=== PATIENT | male | born 1975 | race Hispanic/Latino ===

== ENCOUNTER 2020-07-07 03:19 | Emergency (ER) | payer OTHER ==
[~2020-07-07] VITALS: Ht 180.3 cm; Wt 86.2 kg
[2020-07-07 03:39] VITALS: BP 136/93
[2020-07-07 03:44] VITALS: BP 136/93
[2020-07-07] MEDS ORDERED: TORADOL ONE (03:48)
[2020-07-07] MEDS ORDERED: KENALOG-40 IM STA (03:48)
[2020-07-07] MEDS ORDERED: KENALOG-40 ONE (03:48)
[2020-07-07] MEDS ORDERED: TORADOL IM STA (03:48)
--- NOTE | 2020-07-07 03:56 | ER.PDOC ---
General Chief Complaint: Extremities Stated Complaint: GOUT Time seen by MD: 03:50 Source: patient Exam Limitations: no limitations History of Present Illness Initial Comments Gout flare up of right great toe since yesterday. Patient ate a lot of red meat last week. He has a history of gout and takes allopurinol. Onset: yesterday Where: home Severity: moderate Exacerbated By: walking movement Relieved By: nothing Past Medical History Medical History: other (Gout) Surgical History: no surgical history Family History Significant Family History: no pertinent family hx Social History Smoking: non-smoker Alcohol Use: none Drug Use: none Review of Systems Constitutional: no symptoms reported EENTM: no symptoms reported Respiratory: no symptoms reported Cardiovascular: no symptoms reported Gastrointestinal: no symptoms reported Musculoskeletal: see HPI All Other Systems: Reviewed and Negative Physical Exam General Appearance: Alert, No Apparent Distress Lower Extremity: tenderness (metatarso-phalangeal joint of right great toe without swelling or redness) Joint Exam: joints nml, nml ROM, nml gait/weight bearing Vascular: no vascular compromise, pulses full/equal Neuro/Psych: sensation nml, motor nml, oriented x3, CN's nml as tested, mood/affect nml Skin: color nml, warm/dry, no rash Back/Neck: nml inspection EENT: eyes inspection nml, ENT inspection nml, pharynx nml Respiratory: no resp distress, breath sounds nml CVS: reg rate & rhythm, heart sounds nml Abdomen: non-tender, no organomegaly, no bruit/mass Results/Orders Results/Orders Orders - ALFREDA ALVA MD Ketorolac Tromethamine (Toradol) (07/07/20 03:48) Triamcinolone Acetonide (Kenalog-40) (07/07/20 03:48) Ketorolac Tromethamine (Toradol) (07/07/20 03:48) Triamcinolone Acetonide (Kenalog-40) (07/07/20 03:48) Vital Signs Date Time Temp Pulse Resp B/P (MAP) Pulse Ox O2 Delivery O2 Flow Rate FiO2 07/07/20 03:44 98.0 66 18 136/93 (107) 97 Room Air 07/07/20 03:39 98.0 66 18 07/07/20 03:39 98.0 66 18 97 07/07/20 03:39 98.0 66 18 136/93 (107) 97 Room Air Progress Progress Patient given a shot of Toradol and Kenalog. His pain already easing off. ER DEPART Departure Time of Disposition: 03:55 Disposition: 01 HOME, SELF-CARE Impression: Primary Impression: Gout attack Condition: Improved Referrals: PCP,UNKNOWN (PCP) PRIMARY CARE PROVIDER Additional Instructions: Prednisone Hold allopurinol until flare up is over then you resume medication. Follow-up with your PCP in 3 to 5 days Return to ED if worsening pain or concerns Duration or Time Spent with Pa: 10 min Problem Qualifiers Primary Impression: Gout attack Gout site: toe Gout etiology: unspecified cause Laterality: right Qualified Codes: M10.9 - Gout, unspecified ALFREDA ALVA MD Jul 07, 2020 03:56
[2020-07-07 04:14] VITALS: BP 136/93
== END 2020-07-07 04:13 | disposition home or self-care (01) ==
LOC: ER 03:19
DX: M10.9 Gout, unspecified (principal)
CPT/HCPCS: 96372; 99284; J1885; J3301